=== PATIENT | female | born 1990 | race Caucasian/White ===

== ENCOUNTER 2019-12-06 02:31 | Emergency (ER) | payer BC ==
[2019-12-06 03:09] LABS: ABSOLUTE EOSINOPHILS # (AUTO) 0.1 10^3/uL (0.0-0.6); ABSOLUTE LYMPHOCYTES (AUTO) 3.1 10^3/uL (0.5-4.7); ABSOLUTE MONOCYTES (AUTO) 0.3 10^3/uL (0.1-1.4); ABSOLUTE NEUT (AUTO) 6.5 10^3/uL (1.7-8.2); BASOPHILS % (AUTO) 0.5 % (0-2); EOSINOPHILS % (AUTO) 0.6 % (0-6); HEMATOCRIT 38.4 % (36.0-47.0); HEMOGLOBIN 13.4 g/dL (12.0-15.5); MEAN CORPUSCULAR HEMOGLOBIN 31.1 pg (27.0-33.4); MEAN CORPUSCULAR HGB CONC 34.8 g/dL (32.0-36.0); MEAN CORPUSCULAR VOLUME 89 fl (80-97); MONOCYTES % (AUTO) 3.2 % (3-13); PLATELET COUNT 234 10^3/uL (150-450); RED CELL DISTRIBUTION WIDTH 15.5 % (11.5-14.0); SEGMENTED NEUTROPHILS % (AUTO) 64.7 % (42-78); TOTAL CELLS COUNTED % (AUTO) 100 %; WHITE BLOOD COUNT 10.1 10^3/uL (4.0-10.5)
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
[2019-12-06 03:34] LABS: APPEARANCE,URINE SLIGHTLY-CLOUDY; BILIRUBIN,URINE NEGATIVE (NEGATIVE); COLOR,URINE STRAW; GLUCOSE, URINE NEGATIVE (NEGATIVE); KETONES,URINE NEGATIVE (NEGATIVE); LEUKOCYTE ESTERASE,URINE MODERATE (NEGATIVE); NITRITE,URINE NEGATIVE (NEGATIVE); PROTEIN,URINE NEGATIVE (NEGATIVE); URINE SPECIFIC GRAVITY 1.001; UROBILINOGEN,URINE NEGATIVE mg/dL (<2.0)
[2019-12-06 04:13] LABS: ALBUMIN 4.3 g/dL (3.5-5.0); ALCOHOL 192 mg/dL (NONE DETECTED); ALKALINE PHOSPHATASE 69 U/L (38-126); ANION GAP 14 (5-19); ASPARTATE AMINO TRANSFERASE 26 U/L (14-36); BILIRUBIN,DIRECT 0.3 mg/dL (0.0-0.4); BILIRUBIN,TOTAL 0.4 mg/dL (0.2-1.3); BLOOD UREA NITROGEN 8 mg/dL (7-20); CALCIUM 8.9 mg/dL (8.4-10.2); CARBON DIOXIDE 23 mmol/L (22-30); CHLORIDE 100 mmol/L (98-107); GLUCOSE 106 mg/dL (75-110); POTASSIUM 3.6 mmol/L (3.6-5.0); TOTAL PROTEIN 7.3 g/dL (6.3-8.2)
[2019-12-06 04:19] LABS: ACETAMINOPHEN < 10 ug/mL (10-30); SALICYLATE < 1.0 mg/dL (2.0-20.0)
[2019-12-06 04:38] LABS: URINE AMPHETAMINES SCREEN NEGATIVE; URINE BARBITURATES SCREEN NEGATIVE; URINE BENZODIAZEPINES SCREEN NEGATIVE; URINE COCAINE SCREEN NEGATIVE; URINE MARIJUANA (THC) SCREEN NEGATIVE; URINE METHADONE SCREEN NEGATIVE; URINE PHENCYCLIDINE SCREEN NEGATIVE
[2019-12-06] MEDS ORDERED: NORMAL SALINE 1000 ML 1,000 ML IV ONE (06:54)
--- NOTE | 2019-12-06 07:44 | EKG REPORT ---
SEVERITY:- NORMAL ECG - SINUS RHYTHM : Confirmed by: Maxwell Fontaine MD 06-Dec-2019 07:44:21
[2019-12-06] MEDS ORDERED: LORAZEPAM INJ 2 MG/1 ML VIAL IV ONE (08:13)
[2019-12-06] MEDS ORDERED: LORAZEPAM INJ 2 MG/1 ML VIAL IM ONE (08:26)
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
[2019-12-06] MEDS ORDERED: CLONIDINE HCL 0.1 MG TABLET PO ONE (16:20)
[2019-12-06] MEDS ORDERED: VENLAFAXINE HCL 37.5 MG CAP.SR.24H PO SCH (16:30)
[2019-12-06] MEDS ORDERED: LIDOCAINE 2% JELLY 5 ML TUBE TOP ONE (16:51)
--- NOTE | 2019-12-06 16:53 | ER Document Report ---
Doctor's Note Notes: 12/06/19 16:51 Patient is a 29-year-old white female with a history of depression who is currently in our emergency department under an IVC order for suicidal ideation/attempt and worsening depression. She attempted to harm herself yesterday by cutting her left volar wrist. Cuts noted to be superficial. She states the area is sore today. She reports her tetanus was updated last year. My reevaluation of her at this time is that she is stable and in no acute distress. There are multiple abrasions to the left volar wrist and forearm, no bleeding or drainage. No evidence of infection. Area is tender to palpation. Patient is full range of motion of the wrist and hand distally. Neurovascular intact with 2+ radial on the left. Good capillary refill distally. Heart: Regular rate and rhythm, lungs: Clear to auscultation bilaterally. Patient has a flat affect and is very concerned regarding her medication changes particularly her sleep aids. She is currently under IVC and ongoing psychiatric evaluation and is planned to be held overnight at this time. She will be given topical lidocaine cream for the abrasions to the left wrist and forearm. We will monitor for evidence of infection. Her tetanus is updated. She stable at this time.
[2019-12-06] MEDS: VENLAFAXINE HCL 37.5 MG CAP.SR.24H PO SCH (16:54)
[2019-12-06] MEDS: GABAPENTIN 300 MG CAPSULE PO SCH (17:07)
[2019-12-06] MEDS: OLANZAPINE 2.5 MG TABLET PO SCH (17:07)
--- NOTE | 2019-12-07 08:46 | ER Document Report ---
Doctor's Note Notes: 12/07/19 08:44 Progress note: Reevaluation of the patient this morning, she is stable, in no acute distress. She is answering questions appropriately. She has eaten breakfast. She is requesting a cigarette before transfer. She is aware of her transfer situation to [facility] as arranged by the psychiatric team. I am told that the accepting physician is Dr. King Troy. Heart: Regular rate and rhythm, lungs: Clear to auscultation bilaterally. Patient is stable and appropriate for transfer.
[2019-12-07] MEDS: OLANZAPINE 2.5 MG TABLET PO SCH (09:38)
[2019-12-07] MEDS: GABAPENTIN 300 MG CAPSULE PO SCH (09:38)
--- NOTE | 2019-12-07 09:40 | PSYCHOLOGICAL NOTE ---
Psych Note - Psych Note Date seen by psych provider: 12/07/19 Time seen by psych provider: 08:10 Psych Note: Reason for consult: Suicidal ideation Patient was accepted after hours by Fifi Swartz. Clinician discussed placement and transport with patient. Patient continues to minimize and states she does not believe she needs to go inpatient psychiatric treatment. No further questions at this time. Transportation was requested.
[2019-12-07] MEDS: VENLAFAXINE HCL 37.5 MG CAP.SR.24H PO SCH (09:41)
[2019-12-07 09:43] VITALS: BP 105/60
== END 2019-12-07 10:06 ==
LOC: ER 02:31
DX: S50.812A Abrasion of left forearm, initial encounter (principal); F10.920 Alcohol use, unspecified with intoxication, uncomplicated; F32.9 Major depressive disorder, single episode, unspecified; X78.1XXA Intentional self-harm by knife, initial encounter; F17.200 Nicotine dependence, unspecified, uncomplicated; J45.909 Unspecified asthma, uncomplicated
CPT/HCPCS: 93005; 99285; 96372; 96360; 36415; 80307 ×4; 85025; 81025; 80053; 81001; 93010; J3490 ×4; J2060; J7030